=== PATIENT | male | born 1955 | race Caucasian/White ===

== ENCOUNTER 2022-07-15 11:04 | Inpatient (IN) ==
[2022-07-15 11:57] LABS: Hemoglobin 18.9 g/dL (13.2-16.3); Mean Corpuscular Hemoglobin 32.9 pg (27-33); Mean Platelet Volume 8.1 fL (7.5-11.2); Platelet Count 258 10^3/uL (150-450); Red Blood Count 5.75 10^6/uL (4.06-5.63); Red Cell Distribution Width 14.6 % (12-17); White Blood Count 10.5 10^3/uL (3.6-10.2)
[2022-07-15 12:07] LABS: INR 1.14 (0.88-1.18)
[2022-07-15] MEDS ORDERED: Lactated Ringers 1000 ml BAG 1,000 ML IV ONE ×2 (12:50)
[2022-07-15] MEDS ORDERED: Ondansetron 4 mg VIAL 2 MG/ML 2 ml VIAL IV ONE ×2 (12:51→20:49)
[2022-07-15 12:53] LABS: ABS Lymphocytes 0.6 10^3/uL (1.0-4.8); ABS Monocytes 2.1 10^3/uL (0.0-1.1); ABS Neutrophils 7.7 10^3/uL (1.5-7.6); ABS Nucleated RBC 0.03 10^3/ul; Eosinophil % 0.1 %; Lymphocyte % 5.6 %; Nucleated Red Blood Cells % 0.3 /100 WBC (0.0-0.4); RBC Morphology Normal (Normal)
[2022-07-15 12:56] LABS: ALT 81 U/L (7-52); Albumin 4.4 g/dL (3.2-5.2); Albumin/Globulin Ratio 1.3 (1-3); Alkaline Phosphatase 94 U/L (35-149); Blood Urea Nitrogen 58 mg/dL (6-24); C Reactive Protein 222.16 mg/L (<8.01); CO2 Carbon Dioxide 28 mmol/L (22-32); Calcium 9.7 mg/dL (8.6-10.3); Chloride 85 mmol/L (101-111); Creatinine, Serum 1.69 mg/dL (0.67-1.17); Globulin 3.4 g/dL (2-4); Glucose 185 mg/dL (70-100); Lipase 22 U/L (11.0-82.0); Magnesium 2.1 mg/dL (1.9-2.7); Sodium 128 mmol/L (135-145); Total Protein 7.8 g/dL (6.4-8.9); eGFR CKD-EPI 44.2 (>60)
[2022-07-15 13:16] LABS: Anion Gap 15 mmol/L (2-16)
[2022-07-15] MEDS ORDERED: Iodixanol (CONTRAST) 320 MG/ML 100 ML SDV IV ONE (13:18)
[2022-07-15 15:24] LABS: Potassium Redraw 3.2 mmol/L (3.5-5.0)
[2022-07-15] MEDS ORDERED: Dextrose 50% Syringe 50 ml 25 GM/50 ML SYRINGE IV PUSH PRN (17:58)
[2022-07-15 18:58] LABS: Calcium 9.1 mg/dL (8.6-10.3); Creatinine, Serum 1.57 mg/dL (0.67-1.17); Potassium 3.2 mmol/L (3.5-5.0); eGFR CKD-EPI 48.3 (>60)
[2022-07-15] MEDS ORDERED: Lactated Ringers 1000 ml BAG 1,000 ML IV SCH (19:00)
[2022-07-15] MEDS ORDERED: Diatrizoate Meg/Sod(CONTRAST) 30 ML ORAL.SOLN PO ONE (20:00)
[2022-07-15] MEDS: KCL 20 MEQ/100 ML IVPREMIX 20 MEQ/100 ML BAG IV SCH (20:36)
[2022-07-15] MEDS: Enoxaparin 40 MG/0.4 ML SYR SUBCUT SCH (20:37)
[2022-07-15] MEDS ORDERED: Acetaminophen IV 1 GM/100ML 1,000 MG/100 ML BAG IV ONE (20:55)
[2022-07-15] MEDS: FOSPHENYTOIN IVPB SCH (22:30)
[2022-07-15] MEDS: NS 0.9% IVPB SCH (22:30)
[2022-07-16] MEDS: KCL 20 MEQ/100 ML IVPREMIX 20 MEQ/100 ML BAG IV SCH ×3 (02:49→12:19)
[2022-07-16 06:48] LABS: Hemoglobin 16.7 g/dL (13.2-16.3); Mean Corpuscular Hemoglobin 32.6 pg (27-33); Mean Corpuscular Hgb Conc 34.8 g/dL (31-36); Mean Corpuscular Volume 93.7 fL (80-97); Mean Platelet Volume 8.6 fL (7.5-11.2); Platelet Count 213 10^3/uL (150-450); Red Blood Count 5.12 10^6/uL (4.06-5.63); Red Cell Distribution Width 14.6 % (12-17); White Blood Count 7.3 10^3/uL (3.6-10.2)
[2022-07-16 07:06] LABS: Albumin 3.5 g/dL (3.2-5.2); Albumin/Globulin Ratio 1.3 (1-3); Calcium 8.9 mg/dL (8.6-10.3); Creatinine, Serum 1.16 mg/dL (0.67-1.17); Globulin 2.7 g/dL (2-4); Phosphorus 2.9 mg/dL (2.5-5.0); Potassium 3.4 mmol/L (3.5-5.0); Total Bilirubin 1.2 mg/dL (0.2-1.0); Total Protein 6.2 g/dL (6.4-8.9); eGFR CKD-EPI 69.5 (>60)
[2022-07-16 07:23] LABS: Polychromasia 1+
[2022-07-16 07:25] LABS: ABS Monocytes 1.7 10^3/uL (0.0-1.1); ABS Neutrophils 4.5 10^3/uL (1.5-7.6); ABS Nucleated RBC 0.01 10^3/ul; Eosinophil % 0.6 %; Lymphocyte % 14.4 %; Nucleated Red Blood Cells % 0.1 /100 WBC (0.0-0.4)
[2022-07-16] MEDS: levETIRAcetam IV 250 MG in NS 0.9% 100 ml BAG 100 ML IVPB SCH ×2 (11:02→22:45)
[2022-07-16] MEDS: NS 0.9% IVPB SCH ×2 (11:44→22:16)
[2022-07-16] MEDS: FOSPHENYTOIN IVPB SCH ×2 (11:44→22:16)
[2022-07-16] MEDS: NS 0.9% 1000 ml BAG 1,000 ML IV SCH ×2 (14:24→22:25)
[2022-07-16] MEDS: Enoxaparin 40 MG/0.4 ML SYR SUBCUT SCH (16:57)
[2022-07-17 06:00] LABS: Hematocrit 46.2 % (38-53); Mean Corpuscular Hemoglobin 32.8 pg (27-33); Mean Corpuscular Hgb Conc 34.5 g/dL (31-36); Mean Corpuscular Volume 95.1 fL (80-97); Mean Platelet Volume 7.9 fL (7.5-11.2); Platelet Count 191 10^3/uL (150-450); Red Blood Count 4.86 10^6/uL (4.06-5.63); Red Cell Distribution Width 14.2 % (12-17); White Blood Count 6.9 10^3/uL (3.6-10.2)
[2022-07-17] MEDS: NS 0.9% 1000 ml BAG 1,000 ML IV SCH (06:31)
[2022-07-17 06:38] LABS: Albumin 3.3 g/dL (3.2-5.2); Albumin/Globulin Ratio 1.2 (1-3); Creatinine, Serum 0.77 mg/dL (0.67-1.17); Globulin 2.8 g/dL (2-4); Potassium 2.9 mmol/L (3.5-5.0); Total Bilirubin 0.9 mg/dL (0.2-1.0); Total Protein 6.1 g/dL (6.4-8.9); eGFR CKD-EPI 98.7 (>60)
[2022-07-17 07:54] LABS: ABS Eosinophils 0.1 10^3/uL (0.0-0.5); ABS Lymphocytes 0.9 10^3/uL (1.0-4.8); ABS Monocytes 1.5 10^3/uL (0.0-1.1); ABS Neutrophils 4.4 10^3/uL (1.5-7.6); ABS Nucleated RBC 0.01 10^3/ul; Eosinophil % 0.9 %; Lymphocyte % 13.5 %; Nucleated Red Blood Cells % 0.1 /100 WBC (0.0-0.4); RBC Morphology Normal (Normal)
[2022-07-17] MEDS: KCL 20 MEQ/100 ML IVPREMIX 20 MEQ/100 ML BAG IV SCH ×3 (08:05→13:05)
[2022-07-17] MEDS: NS 0.9% IVPB SCH ×2 (10:09→22:56)
[2022-07-17] MEDS: FOSPHENYTOIN IVPB SCH ×2 (10:09→22:56)
[2022-07-17] MEDS: levETIRAcetam IV 250 MG in NS 0.9% 100 ml BAG 100 ML IVPB SCH ×2 (10:32→23:45)
[2022-07-17] MEDS ORDERED: oxyCODONE/Acetamin 5/325 mg TAB PO PRN (14:28)
[2022-07-17] MEDS ORDERED: Ondansetron 4 mg VIAL 2 MG/ML 2 ml VIAL IV PRN (14:28)
[2022-07-17] MEDS ORDERED: Naloxone 0.4 mg VIAL 0.4 mg/ml 1 ml VIAL IV PRN (14:28)
[2022-07-17] MEDS ORDERED: fentaNYL 100 mcg/2 ml 50 MCG/ML VIAL IV PRN (14:28)
[2022-07-17] MEDS: D5W 1/2 NS 40 Meq KCL 1000 ml 1,000 ML IV SCH ×2 (15:06→22:50)
[2022-07-17] MEDS ORDERED: Lidocaine 2% PF 5 ML VIAL ONE (15:57)
[2022-07-17] MEDS ORDERED: Succinylcholine 200 mg VIAL 20 mg/ml 10 ml VIAL (200 mg) ONE (15:57)
[2022-07-17] MEDS ORDERED: Propofol 10 MG/ML 20 ML BTL ONE (15:57)
[2022-07-17] MEDS ORDERED: Rocuronium 50 mg VIAL 10 mg/ml 5 ml VIAL (50 mg) ONE ×2 (15:57→19:03)
[2022-07-17] MEDS ORDERED: fentaNYL 100 mcg/2 ml 50 MCG/ML VIAL ONE ×2 (15:58→18:00)
[2022-07-17] MEDS ORDERED: Midazolam 2 mg/2 ml VIAL 1 mg/ml 2 ml VIAL (2 mg) ONE (15:58)
[2022-07-17] MEDS ORDERED: Bupivacaine 0.25% SDV 30 ML ONE (16:02)
[2022-07-17] MEDS ORDERED: ceFAZolin *3* GM in NS PREMIX 3 GM/100 ML BAG IV ONE (16:56)
[2022-07-17] MEDS ORDERED: Acetaminophen IV 1 GM/100ML 1,000 MG/100 ML BAG IV ONE (16:56)
[2022-07-17] MEDS ORDERED: Dexamethasone IV 4 MG/ML VIAL 1 ml VIAL ONE ×2 (18:10)
[2022-07-17] MEDS ORDERED: HYDROmorphone 0.5 MG/0.5 ML SYRINGE ONE (18:19)
[2022-07-17] MEDS ORDERED: ZOSYN 3.375 GM x ONE DOSE over 30 miuntes IV (19:00)
[2022-07-17] MEDS ORDERED: Sugammadex 500 MG/5 ML 5 ml VIAL IV PUSH ONE (19:24)
[2022-07-17] MEDS ORDERED: HYDROmorphone 1 MG/1 ML SYRINGE IV SLOW PU PRN (21:41)
[2022-07-17] MEDS ORDERED: Acetaminophen IV 1 GM/100ML 1,000 MG/100 ML BAG IV SCH (22:00)
[2022-07-17] MEDS ORDERED: Metoprolol Tartrate 5 mg VIAL 5 ml VIAL (1 mg/ml) IV SCH (23:45)
[2022-07-18] MEDS: Metoprolol Tartrate 5 mg VIAL 5 ml VIAL (1 mg/ml) IV SCH ×4 (00:40→18:18)
[2022-07-18] MEDS: Acetaminophen IV 1 GM/100ML 1,000 MG/100 ML BAG IV SCH ×3 (01:22→17:07)
[2022-07-18] MEDS: Enoxaparin 40 MG/0.4 ML SYR SUBCUT SCH ×2 (02:59→20:28)
[2022-07-18] MEDS: Piperacillin/Tazobac ADVAN 3.375 GM in NS 0.9% 100 ml BAG 100 ML IV SCH ×3 (05:11→20:20)
[2022-07-18 05:56] LABS: Hematocrit 50.9 % (38-53); Hemoglobin 17.2 g/dL (13.2-16.3); Mean Corpuscular Hemoglobin 32.5 pg (27-33); Mean Corpuscular Hgb Conc 33.8 g/dL (31-36); Mean Platelet Volume 8.1 fL (7.5-11.2); Platelet Count 200 10^3/uL (150-450); Red Cell Distribution Width 14.6 % (12-17); White Blood Count 14.9 10^3/uL (3.6-10.2)
[2022-07-18 06:06] LABS: Calcium 7.3 mg/dL (8.6-10.3); Creatinine, Serum 1.16 mg/dL (0.67-1.17); Potassium 3.8 mmol/L (3.5-5.0); eGFR CKD-EPI 69.5 (>60)
[2022-07-18 06:25] LABS: Platelet Morphology Large
[2022-07-18 06:26] LABS: ABS Lymphocytes 0.2 10^3/uL (1.0-4.8); ABS Monocytes 0.6 10^3/uL (0.0-1.1); ABS Neutrophils 14.1 10^3/uL (1.5-7.6); ABS Nucleated RBC 0.02 10^3/ul; Eosinophil % 0.1 %; Lymphocyte % 1.4 %; Nucleated Red Blood Cells % 0.1 /100 WBC (0.0-0.4)
[2022-07-18] MEDS: NS 0.9% IVPB SCH ×2 (09:46→20:28)
[2022-07-18] MEDS: FOSPHENYTOIN IVPB SCH ×2 (09:46→20:28)
[2022-07-18] MEDS: D5W 1/2 NS 40 Meq KCL 1000 ml 1,000 ML IV SCH ×2 (09:53→20:18)
[2022-07-18] MEDS: Nystatin TOP POWDER 15 GM BTL TOPICAL SCH (09:55)
[2022-07-18] MEDS: levETIRAcetam IV 250 MG in NS 0.9% 100 ml BAG 100 ML IVPB SCH (12:28)
[2022-07-19] MEDS: Metoprolol Tartrate 5 mg VIAL 5 ml VIAL (1 mg/ml) IV SCH ×5 (00:01→23:17)
[2022-07-19] MEDS: Acetaminophen IV 1 GM/100ML 1,000 MG/100 ML BAG IV SCH ×3 (00:44→16:44)
[2022-07-19 06:06] LABS: Hematocrit 49.7 % (38-53); Hemoglobin 16.8 g/dL (13.2-16.3); Mean Corpuscular Hemoglobin 32.5 pg (27-33); Mean Corpuscular Hgb Conc 33.8 g/dL (31-36); Mean Corpuscular Volume 96.1 fL (80-97); Mean Platelet Volume 8.3 fL (7.5-11.2); Platelet Count 202 10^3/uL (150-450); Red Blood Count 5.17 10^6/uL (4.06-5.63); Red Cell Distribution Width 14.9 % (12-17); White Blood Count 21.5 10^3/uL (3.6-10.2)
[2022-07-19] MEDS: Piperacillin/Tazobac ADVAN 3.375 GM in NS 0.9% 100 ml BAG 100 ML IV SCH ×3 (06:07→21:04)
[2022-07-19 06:16] LABS: Calcium 7.3 mg/dL (8.6-10.3); Creatinine, Serum 1.04 mg/dL (0.67-1.17); Potassium 4.2 mmol/L (3.5-5.0); eGFR CKD-EPI 79.2 (>60)
[2022-07-19 07:50] LABS: RBC Morphology Normal (Normal)
[2022-07-19 07:51] LABS: ABS Lymphocytes 0.5 10^3/uL (1.0-4.8); ABS Monocytes 0.8 10^3/uL (0.0-1.1); ABS Neutrophils 20.2 10^3/uL (1.5-7.6); ABS Nucleated RBC 0.01 10^3/ul; Eosinophil % 0.1 %; Lymphocyte % 2.3 %
[2022-07-19] MEDS ORDERED: Lactated Ringers 1000 ml BAG 1,000 ML IV ONE (07:59)
[2022-07-19] MEDS: Nystatin TOP POWDER 15 GM BTL TOPICAL SCH (08:12)
[2022-07-19] MEDS: FOSPHENYTOIN IVPB SCH ×2 (09:00→21:18)
[2022-07-19] MEDS: NS 0.9% IVPB SCH ×2 (09:00→21:18)
[2022-07-19] MEDS: levETIRAcetam IV 250 MG in NS 0.9% 100 ml BAG 100 ML IVPB SCH ×3 (11:45→23:20)
[2022-07-19] MEDS ORDERED: Lactated Ringers 1000 ml BAG 1,000 ML IV SCH (12:00)
[2022-07-19] MEDS: Ondansetron 4 mg VIAL 2 MG/ML 2 ml VIAL IV PRN (19:05)
[2022-07-19] MEDS: Enoxaparin 40 MG/0.4 ML SYR SUBCUT SCH (21:18)
[2022-07-19] MEDS ORDERED: Prochlorperazine 5 mg/ml 2 ml VIAL (10 mg) IV ONE (23:09)
[2022-07-20] MEDS: Acetaminophen IV 1 GM/100ML 1,000 MG/100 ML BAG IV SCH ×3 (00:58→17:45)
[2022-07-20] MEDS: Ondansetron 4 mg VIAL 2 MG/ML 2 ml VIAL IV PRN (00:59)
[2022-07-20] MEDS: Piperacillin/Tazobac ADVAN 3.375 GM in NS 0.9% 100 ml BAG 100 ML IV SCH ×3 (05:12→21:06)
[2022-07-20] MEDS: Metoprolol Tartrate 5 mg VIAL 5 ml VIAL (1 mg/ml) IV SCH ×3 (05:16→17:53)
[2022-07-20] MEDS ORDERED: Prochlorperazine 5 mg/ml 2 ml VIAL (10 mg) IV ONE (05:28)
[2022-07-20 06:13] LABS: Hematocrit 46.8 % (38-53); Hemoglobin 15.7 g/dL (13.2-16.3); Mean Corpuscular Hemoglobin 31.4 pg (27-33); Mean Corpuscular Hgb Conc 33.5 g/dL (31-36); Mean Platelet Volume 8.4 fL (7.5-11.2); Platelet Count 222 10^3/uL (150-450); Red Blood Count 4.98 10^6/uL (4.06-5.63); White Blood Count 22.6 10^3/uL (3.6-10.2)
[2022-07-20 06:33] LABS: Calcium 7.4 mg/dL (8.6-10.3); Creatinine, Serum 0.74 mg/dL (0.67-1.17); Potassium 3.9 mmol/L (3.5-5.0); eGFR CKD-EPI 99.9 (>60)
[2022-07-20 09:40] LABS: ABS Eosinophils 0.2 10^3/uL (0.0-0.5); ABS Lymphocytes 0.7 10^3/uL (1.0-4.8); ABS Monocytes 0.7 10^3/uL (0.0-1.1); ABS Neutrophils 21.1 10^3/uL (1.5-7.6); Eosinophil % 0.7 %
[2022-07-20] MEDS: NS 0.9% IVPB SCH ×2 (09:57→20:29)
[2022-07-20] MEDS: FOSPHENYTOIN IVPB SCH ×2 (09:57→20:29)
[2022-07-20] MEDS: Nystatin TOP POWDER 15 GM BTL TOPICAL SCH (10:40)
[2022-07-20] MEDS: levETIRAcetam IV 250 MG in NS 0.9% 100 ml BAG 100 ML IVPB SCH (12:48)
[2022-07-20 19:04] LABS: Hematocrit 45.8 % (38-53); Hemoglobin 15.4 g/dL (13.2-16.3); Mean Corpuscular Hemoglobin 31.4 pg (27-33); Mean Corpuscular Hgb Conc 33.7 g/dL (31-36); Mean Corpuscular Volume 93.2 fL (80-97); Mean Platelet Volume 8.3 fL (7.5-11.2); Platelet Count 221 10^3/uL (150-450); Red Blood Count 4.92 10^6/uL (4.06-5.63); Red Cell Distribution Width 15.1 % (12-17); White Blood Count 22.4 10^3/uL (3.6-10.2)
[2022-07-20 19:20] LABS: Albumin 2.5 g/dL (3.2-5.2); Albumin/Globulin Ratio 0.9 (1-3); C Reactive Protein 362.32 mg/L (<8.01); Calcium 6.9 mg/dL (8.6-10.3); Creatinine, Serum 0.79 mg/dL (0.67-1.17); Globulin 2.9 g/dL (2-4); Potassium 4.2 mmol/L (3.5-5.0); Total Bilirubin 1.1 mg/dL (0.2-1.0); Total Protein 5.4 g/dL (6.4-8.9)
[2022-07-20 20:15] LABS: ABS Basophils 0.1 10^3/uL (0.0-0.1); ABS Eosinophils 0.1 10^3/uL (0.0-0.5); ABS Lymphocytes 0.7 10^3/uL (1.0-4.8); ABS Monocytes 0.6 10^3/uL (0.0-1.1); Eosinophil % 0.2 %
[2022-07-20] MEDS ORDERED: Iodixanol (CONTRAST) 320 MG/ML 100 ML SDV IV ONE (20:17)
[2022-07-20] MEDS: Enoxaparin 40 MG/0.4 ML SYR SUBCUT SCH (20:30)
[2022-07-21] MEDS: Metoprolol Tartrate 5 mg VIAL 5 ml VIAL (1 mg/ml) IV SCH ×4 (00:21→19:14)
[2022-07-21] MEDS: levETIRAcetam IV 250 MG in NS 0.9% 100 ml BAG 100 ML IVPB SCH ×2 (01:31→14:24)
[2022-07-21] MEDS: Acetaminophen IV 1 GM/100ML 1,000 MG/100 ML BAG IV SCH ×3 (01:58→17:52)
[2022-07-21] MEDS: Albuterol/Ipratropium NEB.SOL (2.5/0.5 MG) 3 ML NEB.SOLN INH PRN ×2 (02:18→18:13)
[2022-07-21] MEDS: Ondansetron 4 mg VIAL 2 MG/ML 2 ml VIAL IV PRN (02:21)
[2022-07-21] MEDS: Piperacillin/Tazobac ADVAN 3.375 GM in NS 0.9% 100 ml BAG 100 ML IV SCH ×3 (04:49→20:59)
[2022-07-21 06:01] LABS: Hemoglobin 15.3 g/dL (13.2-16.3); Mean Corpuscular Hemoglobin 31.9 pg (27-33); Mean Corpuscular Hgb Conc 33.9 g/dL (31-36); Mean Corpuscular Volume 93.9 fL (80-97); Mean Platelet Volume 8.3 fL (7.5-11.2); Platelet Count 206 10^3/uL (150-450); Red Blood Count 4.79 10^6/uL (4.06-5.63); White Blood Count 20.4 10^3/uL (3.6-10.2)
[2022-07-21 06:36] LABS: Creatinine, Serum 0.84 mg/dL (0.67-1.17); eGFR CKD-EPI 96.2 (>60)
[2022-07-21 08:53] LABS: ABS Basophils 0.1 10^3/uL (0.0-0.1); ABS Eosinophils 0.1 10^3/uL (0.0-0.5); ABS Lymphocytes 0.7 10^3/uL (1.0-4.8); ABS Monocytes 0.6 10^3/uL (0.0-1.1); ABS Neutrophils 18.8 10^3/uL (1.5-7.6); ABS Nucleated RBC 0.04 10^3/ul; Eosinophil % 0.7 %; Lymphocyte % 3.6 %; Nucleated Red Blood Cells % 0.2 /100 WBC (0.0-0.4)
[2022-07-21 08:55] LABS: RBC Morphology Normal (Normal)
[2022-07-21] MEDS ORDERED: Furosemide 40 mg/4 ml IV VIAL IV SLOW PU ONE (08:57)
[2022-07-21] MEDS: FOSPHENYTOIN IVPB SCH ×2 (10:36→20:28)
[2022-07-21] MEDS: NS 0.9% IVPB SCH ×2 (10:36→20:28)
[2022-07-21] MEDS: Nystatin TOP POWDER 15 GM BTL TOPICAL SCH (12:37)
[2022-07-21] MEDS: levETIRAcetam LIQ 500 MG/5 ML UDC PO SCH ×2 (15:06→20:22)
[2022-07-21] MEDS ORDERED: Sulfur Hexaflouride MICROSPHR 25 MG VIAL ONE (15:49)
[2022-07-21] MEDS: Mometasone/Formoter 200/5 MDI INH SCH ×2 (18:08→19:04)
[2022-07-21] MEDS: Enoxaparin 40 MG/0.4 ML SYR SUBCUT SCH (20:21)
[2022-07-22] MEDS: Metoprolol Tartrate 5 mg VIAL 5 ml VIAL (1 mg/ml) IV SCH ×4 (00:23→19:07)
[2022-07-22] MEDS: Acetaminophen IV 1 GM/100ML 1,000 MG/100 ML BAG IV SCH ×3 (01:43→19:07)
[2022-07-22] MEDS ORDERED: Morphine 2 MG/ML SYRINGE IV ONE (04:41)
[2022-07-22] MEDS ORDERED: Morphine 2 MG/ML SYRINGE ONE (04:45)
[2022-07-22] MEDS: Piperacillin/Tazobac ADVAN 3.375 GM in NS 0.9% 100 ml BAG 100 ML IV SCH ×3 (04:51→21:51)
[2022-07-22] MEDS: FOSPHENYTOIN IVPB SCH ×2 (09:00→20:50)
[2022-07-22] MEDS: NS 0.9% IVPB SCH ×2 (09:00→20:50)
[2022-07-22] MEDS: levETIRAcetam LIQ 500 MG/5 ML UDC PO SCH ×2 (10:03→22:05)
[2022-07-22] MEDS: Nystatin TOP POWDER 15 GM BTL TOPICAL SCH (10:03)
[2022-07-22] MEDS: Mometasone/Formoter 200/5 MDI INH SCH ×2 (10:33→19:40)
[2022-07-22 11:59] LABS: Hematocrit 42.7 % (38-53); Hemoglobin 14.5 g/dL (13.2-16.3); Mean Corpuscular Hemoglobin 31.7 pg (27-33); Mean Corpuscular Volume 93.1 fL (80-97); Mean Platelet Volume 7.8 fL (7.5-11.2); Platelet Count 218 10^3/uL (150-450); Red Blood Count 4.59 10^6/uL (4.06-5.63); Red Cell Distribution Width 15.2 % (12-17); White Blood Count 25.2 10^3/uL (3.6-10.2)
[2022-07-22 12:22] LABS: Calcium 7.1 mg/dL (8.6-10.3); Creatinine, Serum 0.65 mg/dL (0.67-1.17); Potassium 3.9 mmol/L (3.5-5.0); eGFR CKD-EPI 103.9 (>60)
[2022-07-22] MEDS ORDERED: Anidulafungin 200 MG in NS 0.9% 250 ml 200 ML IVPB ONE (12:37)
[2022-07-22 12:52] LABS: ABS Basophils 0.1 10^3/uL (0.0-0.1); ABS Eosinophils 0.3 10^3/uL (0.0-0.5); ABS Lymphocytes 0.8 10^3/uL (1.0-4.8); ABS Nucleated RBC 0.02 10^3/ul; Lymphocyte % 3.2 %; Nucleated Red Blood Cells % 0.1 /100 WBC (0.0-0.4); RBC Morphology Normal (Normal)
[2022-07-22] MEDS: Enoxaparin 40 MG/0.4 ML SYR SUBCUT SCH (22:05)
[2022-07-23] MEDS: Metoprolol Tartrate 5 mg VIAL 5 ml VIAL (1 mg/ml) IV SCH ×2 (01:00→05:55)
[2022-07-23] MEDS: Acetaminophen IV 1 GM/100ML 1,000 MG/100 ML BAG IV SCH ×3 (02:05→18:25)
[2022-07-23] MEDS: Piperacillin/Tazobac ADVAN 3.375 GM in NS 0.9% 100 ml BAG 100 ML IV SCH ×3 (05:50→22:01)
[2022-07-23 06:48] LABS: ABS Basophils 0.1 10^3/uL (0.0-0.1); ABS Eosinophils 0.2 10^3/uL (0.0-0.5); ABS Lymphocytes 0.9 10^3/uL (1.0-4.8); ABS Nucleated RBC 0.01 10^3/ul; Eosinophil % 0.7 %; Hematocrit 43.2 % (38-53); Hemoglobin 14.6 g/dL (13.2-16.3); Lymphocyte % 3.8 %; Mean Corpuscular Hemoglobin 31.9 pg (27-33); Mean Corpuscular Hgb Conc 33.7 g/dL (31-36); Mean Corpuscular Volume 94.7 fL (80-97); Platelet Count 247 10^3/uL (150-450); Red Blood Count 4.56 10^6/uL (4.06-5.63); White Blood Count 24.1 10^3/uL (3.6-10.2)
[2022-07-23 07:01] LABS: Calcium 7.4 mg/dL (8.6-10.3); Potassium 3.8 mmol/L (3.5-5.0)
[2022-07-23 07:07] LABS: Creatinine, Serum 0.63 mg/dL (0.67-1.17); eGFR CKD-EPI 104.9 (>60)
[2022-07-23] MEDS: Mometasone/Formoter 200/5 MDI INH SCH ×2 (07:26→19:06)
[2022-07-23] MEDS: FOSPHENYTOIN IVPB SCH (08:59)
[2022-07-23] MEDS: NS 0.9% IVPB SCH (08:59)
[2022-07-23] MEDS: levETIRAcetam LIQ 500 MG/5 ML UDC PO SCH ×2 (09:13→21:28)
[2022-07-23] MEDS: Nystatin TOP POWDER 15 GM BTL TOPICAL SCH (09:14)
[2022-07-23] MEDS ORDERED: Iodixanol (CONTRAST) 320 MG/ML 100 ML SDV IV ONE (10:58)
[2022-07-23] MEDS ORDERED: Anidulafungin 100 MG in NS 0.9% 100 ml BAG 100 ML IVPB SCH (14:00)
[2022-07-23] MEDS: Anidulafungin 100 MG in NS 0.9% 100 ml BAG 100 ML IVPB SCH (18:38)
[2022-07-23] MEDS: Enoxaparin 40 MG/0.4 ML SYR SUBCUT SCH (21:27)
[2022-07-23] MEDS: Phenytoin 100 mg ER CAP PO SCH (21:28)
[2022-07-24] MEDS: Acetaminophen IV 1 GM/100ML 1,000 MG/100 ML BAG IV SCH ×3 (01:29→22:04)
[2022-07-24] MEDS: Piperacillin/Tazobac ADVAN 3.375 GM in NS 0.9% 100 ml BAG 100 ML IV SCH ×3 (04:46→23:00)
[2022-07-24] MEDS: Mometasone/Formoter 200/5 MDI INH SCH ×2 (07:12→19:33)
[2022-07-24] MEDS: levETIRAcetam LIQ 500 MG/5 ML UDC PO SCH ×2 (09:01→22:12)
[2022-07-24] MEDS: Phenytoin 100 mg ER CAP PO SCH ×2 (09:02→22:11)
[2022-07-24] MEDS: Nystatin TOP POWDER 15 GM BTL TOPICAL SCH (09:02)
[2022-07-24 09:40] LABS: Hemoglobin 13.7 g/dL (13.2-16.3); Mean Corpuscular Hgb Conc 34.2 g/dL (31-36); Mean Corpuscular Volume 93.7 fL (80-97); Mean Platelet Volume 7.9 fL (7.5-11.2); Platelet Count 264 10^3/uL (150-450); Red Blood Count 4.27 10^6/uL (4.06-5.63); Red Cell Distribution Width 15.1 % (12-17); White Blood Count 24.7 10^3/uL (3.6-10.2)
[2022-07-24 10:03] LABS: Calcium 7.3 mg/dL (8.6-10.3); Creatinine, Serum 0.52 mg/dL (0.67-1.17); Magnesium 1.6 mg/dL (1.9-2.7); Potassium 3.6 mmol/L (3.5-5.0); eGFR CKD-EPI 111.2 (>60)
[2022-07-24 10:23] LABS: ABS Basophils 0.1 10^3/uL (0.0-0.1); ABS Eosinophils 0.1 10^3/uL (0.0-0.5); ABS Lymphocytes 0.8 10^3/uL (1.0-4.8); ABS Monocytes 1.3 10^3/uL (0.0-1.1); ABS Neutrophils 22.4 10^3/uL (1.5-7.6); ABS Nucleated RBC 0.04 10^3/ul; Eosinophil % 0.5 %; Lymphocyte % 3.3 %; Nucleated Red Blood Cells % 0.1 /100 WBC (0.0-0.4); RBC Morphology Normal (Normal)
[2022-07-24] MEDS ORDERED: Magnesium Sulfate 2 gm BAG 2 GM/50 ML BAG IVPB ONE (11:32)
[2022-07-24] MEDS ORDERED: fentaNYL 100 mcg/2 ml 50 MCG/ML VIAL ONE (13:01)
[2022-07-24 16:08] LABS: Body Fluid WBC 130268 /mcL
[2022-07-24 16:10] LABS: Body Fluid Appearance Cloudy
[2022-07-24] MEDS: Anidulafungin 100 MG in NS 0.9% 100 ml BAG 100 ML IVPB SCH (21:44)
[2022-07-24] MEDS: Enoxaparin 40 MG/0.4 ML SYR SUBCUT SCH (22:12)
[2022-07-25] MEDS: Acetaminophen IV 1 GM/100ML 1,000 MG/100 ML BAG IV SCH ×3 (02:52→17:54)
[2022-07-25] MEDS: Piperacillin/Tazobac ADVAN 3.375 GM in NS 0.9% 100 ml BAG 100 ML IV SCH ×3 (05:48→22:34)
[2022-07-25 05:57] LABS: Hematocrit 37.4 % (38-53); Hemoglobin 12.7 g/dL (13.2-16.3); Mean Corpuscular Hemoglobin 31.9 pg (27-33); Mean Corpuscular Hgb Conc 33.9 g/dL (31-36); Mean Corpuscular Volume 94.1 fL (80-97); Mean Platelet Volume 7.9 fL (7.5-11.2); Platelet Count 275 10^3/uL (150-450); Red Blood Count 3.97 10^6/uL (4.06-5.63); Red Cell Distribution Width 15.1 % (12-17); White Blood Count 21.3 10^3/uL (3.6-10.2)
[2022-07-25 06:12] LABS: Calcium 7.2 mg/dL (8.6-10.3); Creatinine, Serum 0.56 mg/dL (0.67-1.17); Magnesium 1.9 mg/dL (1.9-2.7); Potassium 3.6 mmol/L (3.5-5.0); eGFR CKD-EPI 108.7 (>60)
[2022-07-25] MEDS: Mometasone/Formoter 200/5 MDI INH SCH ×2 (06:52→19:57)
[2022-07-25 06:55] LABS: ABS Basophils 0.1 10^3/uL (0.0-0.1); ABS Eosinophils 0.2 10^3/uL (0.0-0.5); ABS Monocytes 1.2 10^3/uL (0.0-1.1); ABS Neutrophils 18.8 10^3/uL (1.5-7.6); ABS Nucleated RBC 0.02 10^3/ul; Eosinophil % 0.9 %; Lymphocyte % 4.8 %; Nucleated Red Blood Cells % 0.1 /100 WBC (0.0-0.4); RBC Morphology Normal (Normal)
[2022-07-25] MEDS: levETIRAcetam LIQ 500 MG/5 ML UDC PO SCH ×2 (09:04→22:37)
[2022-07-25] MEDS: Nystatin TOP POWDER 15 GM BTL TOPICAL SCH (09:05)
[2022-07-25] MEDS: Phenytoin 100 mg ER CAP PO SCH ×2 (09:05→21:51)
[2022-07-25] MEDS: Anidulafungin 100 MG in NS 0.9% 100 ml BAG 100 ML IVPB SCH (18:23)
[2022-07-25] MEDS: Enoxaparin 40 MG/0.4 ML SYR SUBCUT SCH (22:01)
[2022-07-26] MEDS: Acetaminophen IV 1 GM/100ML 1,000 MG/100 ML BAG IV SCH ×2 (01:11→09:31)
[2022-07-26] MEDS: Piperacillin/Tazobac ADVAN 3.375 GM in NS 0.9% 100 ml BAG 100 ML IV SCH ×3 (04:43→21:29)
[2022-07-26 07:35] LABS: Hematocrit 37.4 % (38-53); Hemoglobin 12.8 g/dL (13.2-16.3); Mean Corpuscular Hemoglobin 32.2 pg (27-33); Mean Corpuscular Hgb Conc 34.3 g/dL (31-36); Mean Corpuscular Volume 93.7 fL (80-97); Mean Platelet Volume 7.9 fL (7.5-11.2); Platelet Count 340 10^3/uL (150-450); Red Blood Count 3.99 10^6/uL (4.06-5.63); Red Cell Distribution Width 14.9 % (12-17); White Blood Count 23.6 10^3/uL (3.6-10.2)
[2022-07-26 08:09] LABS: Calcium 7.3 mg/dL (8.6-10.3); Creatinine, Serum 0.58 mg/dL (0.67-1.17); Potassium 3.5 mmol/L (3.5-5.0); eGFR CKD-EPI 107.6 (>60)
[2022-07-26] MEDS: Mometasone/Formoter 200/5 MDI INH SCH ×2 (08:12→19:22)
[2022-07-26 08:42] LABS: RBC Morphology Normal (Normal)
[2022-07-26 08:43] LABS: ABS Basophils 0.1 10^3/uL (0.0-0.1); ABS Eosinophils 0.1 10^3/uL (0.0-0.5); ABS Lymphocytes 0.9 10^3/uL (1.0-4.8); ABS Monocytes 1.3 10^3/uL (0.0-1.1); ABS Neutrophils 21.2 10^3/uL (1.5-7.6); ABS Nucleated RBC 0.01 10^3/ul; Eosinophil % 0.5 %; Lymphocyte % 3.8 %
[2022-07-26] MEDS: levETIRAcetam LIQ 500 MG/5 ML UDC PO SCH ×2 (09:31→20:32)
[2022-07-26] MEDS: Phenytoin 100 mg ER CAP PO SCH ×2 (09:31→20:33)
[2022-07-26] MEDS: Nystatin TOP POWDER 15 GM BTL TOPICAL SCH (09:33)
[2022-07-26 12:33] LABS: C Reactive Protein 220.29 mg/L (<8.01)
[2022-07-26] MEDS: Anidulafungin 100 MG in NS 0.9% 100 ml BAG 100 ML IVPB SCH (19:14)
[2022-07-26] MEDS: Enoxaparin 40 MG/0.4 ML SYR SUBCUT SCH (20:29)
[2022-07-27] MEDS: Piperacillin/Tazobac ADVAN 3.375 GM in NS 0.9% 100 ml BAG 100 ML IV SCH ×3 (05:44→21:10)
[2022-07-27 06:01] LABS: Hematocrit 38.3 % (38-53); Hemoglobin 13.2 g/dL (13.2-16.3); Mean Corpuscular Hemoglobin 32.3 pg (27-33); Mean Corpuscular Hgb Conc 34.3 g/dL (31-36); Mean Corpuscular Volume 94.2 fL (80-97); Mean Platelet Volume 7.8 fL (7.5-11.2); Platelet Count 393 10^3/uL (150-450); Red Blood Count 4.07 10^6/uL (4.06-5.63); Red Cell Distribution Width 14.7 % (12-17); White Blood Count 21.9 10^3/uL (3.6-10.2)
[2022-07-27 06:16] LABS: Calcium 7.4 mg/dL (8.6-10.3); Creatinine, Serum 0.49 mg/dL (0.67-1.17); Potassium 3.5 mmol/L (3.5-5.0); eGFR CKD-EPI 113.2 (>60)
[2022-07-27 06:39] LABS: ABS Basophils 0.3 10^3/uL (0.0-0.1); ABS Eosinophils 0.1 10^3/uL (0.0-0.5); ABS Lymphocytes 0.8 10^3/uL (1.0-4.8); ABS Monocytes 1.3 10^3/uL (0.0-1.1); ABS Neutrophils 19.4 10^3/uL (1.5-7.6); ABS Nucleated RBC 0.02 10^3/ul; Eosinophil % 0.3 %; Lymphocyte % 3.5 %; Nucleated Red Blood Cells % 0.1 /100 WBC (0.0-0.4); Polychromasia 1+
[2022-07-27] MEDS: Mometasone/Formoter 200/5 MDI INH SCH ×2 (08:24→19:28)
[2022-07-27] MEDS: levETIRAcetam LIQ 500 MG/5 ML UDC PO SCH ×2 (09:09→21:07)
[2022-07-27] MEDS: Phenytoin 100 mg ER CAP PO SCH ×2 (09:10→21:08)
[2022-07-27] MEDS: Nystatin TOP POWDER 15 GM BTL TOPICAL SCH (09:11)
[2022-07-27] MEDS: Anidulafungin 100 MG in NS 0.9% 100 ml BAG 100 ML IVPB SCH (18:32)
[2022-07-27] MEDS: Enoxaparin 40 MG/0.4 ML SYR SUBCUT SCH (21:08)
[2022-07-28] MEDS: Piperacillin/Tazobac ADVAN 3.375 GM in NS 0.9% 100 ml BAG 100 ML IV SCH ×3 (05:11→20:50)
[2022-07-28 06:59] LABS: Hematocrit 40.3 % (38-53); Hemoglobin 13.2 g/dL (13.2-16.3); Mean Corpuscular Hemoglobin 32.3 pg (27-33); Mean Corpuscular Hgb Conc 32.8 g/dL (31-36); Mean Corpuscular Volume 98.5 fL (80-97); Mean Platelet Volume 8.1 fL (7.5-11.2); Platelet Count 368 10^3/uL (150-450); Red Blood Count 4.09 10^6/uL (4.06-5.63); Red Cell Distribution Width 15.6 % (12-17); White Blood Count 19.7 10^3/uL (3.6-10.2)
[2022-07-28 07:22] LABS: ABS Basophils 0.1 10^3/uL (0.0-0.1); ABS Eosinophils 0.1 10^3/uL (0.0-0.5); ABS Lymphocytes 0.9 10^3/uL (1.0-4.8); ABS Monocytes 1.6 10^3/uL (0.0-1.1); Eosinophil % 0.6 %; Lymphocyte % 4.4 %; RBC Morphology Normal (Normal)
[2022-07-28] MEDS: Mometasone/Formoter 200/5 MDI INH SCH ×2 (07:39→19:36)
[2022-07-28] MEDS: Nystatin TOP POWDER 15 GM BTL TOPICAL SCH (09:13)
[2022-07-28] MEDS: Phenytoin 100 mg ER CAP PO SCH ×2 (09:13→20:59)
[2022-07-28] MEDS: levETIRAcetam LIQ 500 MG/5 ML UDC PO SCH ×2 (09:14→20:49)
[2022-07-28] MEDS: Anidulafungin 100 MG in NS 0.9% 100 ml BAG 100 ML IVPB SCH (19:43)
[2022-07-28] MEDS: Enoxaparin 40 MG/0.4 ML SYR SUBCUT SCH (20:50)
[2022-07-29] MEDS: Piperacillin/Tazobac ADVAN 3.375 GM in NS 0.9% 100 ml BAG 100 ML IV SCH ×3 (04:37→22:08)
[2022-07-29 06:10] LABS: Hemoglobin 12.7 g/dL (13.2-16.3); Mean Corpuscular Hemoglobin 32.4 pg (27-33); Mean Corpuscular Hgb Conc 34.4 g/dL (31-36); Mean Corpuscular Volume 94.4 fL (80-97); Mean Platelet Volume 7.3 fL (7.5-11.2); Platelet Count 483 10^3/uL (150-450); Red Blood Count 3.92 10^6/uL (4.06-5.63); Red Cell Distribution Width 15.2 % (12-17); White Blood Count 16.5 10^3/uL (3.6-10.2)
[2022-07-29 06:13] LABS: ABS Eosinophils 0.1 10^3/uL (0.0-0.5); ABS Lymphocytes 0.9 10^3/uL (1.0-4.8); ABS Monocytes 1.6 10^3/uL (0.0-1.1); Eosinophil % 0.5 %; Lymphocyte % 5.2 %
[2022-07-29 06:34] LABS: Calcium 7.5 mg/dL (8.6-10.3); Creatinine, Serum 0.44 mg/dL (0.67-1.17); Potassium 3.7 mmol/L (3.5-5.0); eGFR CKD-EPI 116.9 (>60)
[2022-07-29] MEDS: Mometasone/Formoter 200/5 MDI INH SCH ×2 (07:21→19:19)
[2022-07-29 09:06] LABS: C Reactive Protein 264.13 mg/L (<8.01)
[2022-07-29] MEDS: Phenytoin 100 mg ER CAP PO SCH ×2 (09:26→21:38)
[2022-07-29] MEDS: levETIRAcetam LIQ 500 MG/5 ML UDC PO SCH ×2 (09:26→21:40)
[2022-07-29] MEDS: Nystatin TOP POWDER 15 GM BTL TOPICAL SCH (09:27)
[2022-07-29] MEDS ORDERED: Morphine 2 MG/ML SYRINGE IV PRN (09:29)
[2022-07-29] MEDS ORDERED: Iodixanol (CONTRAST) 320 MG/ML 100 ML SDV IV ONE (11:46)
[2022-07-29] MEDS: Ondansetron 4 mg VIAL 2 MG/ML 2 ml VIAL IV PRN (16:30)
[2022-07-29] MEDS: Albuterol/Ipratropium NEB.SOL (2.5/0.5 MG) 3 ML NEB.SOLN INH PRN ×2 (16:32→19:20)
[2022-07-29] MEDS: Pantoprazole VIAL 40 MG VIAL IV SCH (16:49)
[2022-07-29] MEDS: Anidulafungin 100 MG in NS 0.9% 100 ml BAG 100 ML IVPB SCH (19:33)
[2022-07-29 20:00] LABS: Hematocrit 37.3 % (38-53); Hemoglobin 12.7 g/dL (13.2-16.3)
[2022-07-29] MEDS: Enoxaparin 40 MG/0.4 ML SYR SUBCUT SCH (21:40)
[2022-07-30 05:54] LABS: ABS Basophils 0.1 10^3/uL (0.0-0.1); ABS Eosinophils 0.2 10^3/uL (0.0-0.5); ABS Lymphocytes 0.6 10^3/uL (1.0-4.8); ABS Monocytes 1.5 10^3/uL (0.0-1.1); ABS Neutrophils 11.3 10^3/uL (1.5-7.6); ABS Nucleated RBC 0.01 10^3/ul; Eosinophil % 1.1 %; Hematocrit 36.2 % (38-53); Hemoglobin 12.4 g/dL (13.2-16.3); Lymphocyte % 4.6 %; Mean Corpuscular Hemoglobin 32.7 pg (27-33); Mean Corpuscular Hgb Conc 34.3 g/dL (31-36); Mean Corpuscular Volume 95.3 fL (80-97); Mean Platelet Volume 7.1 fL (7.5-11.2); Nucleated Red Blood Cells % 0.1 /100 WBC (0.0-0.4); Platelet Count 484 10^3/uL (150-450); Red Cell Distribution Width 15.3 % (12-17); White Blood Count 13.6 10^3/uL (3.6-10.2)
[2022-07-30] MEDS: Piperacillin/Tazobac ADVAN 3.375 GM in NS 0.9% 100 ml BAG 100 ML IV SCH ×3 (05:55→21:00)
[2022-07-30 06:11] LABS: Calcium 7.5 mg/dL (8.6-10.3); Creatinine, Serum 0.5 mg/dL (0.67-1.17); Potassium 4.1 mmol/L (3.5-5.0); eGFR CKD-EPI 112.5 (>60)
[2022-07-30] MEDS: Mometasone/Formoter 200/5 MDI INH SCH ×2 (08:21→19:32)
[2022-07-30] MEDS ORDERED: Albuterol/Ipratropium NEB.SOL (2.5/0.5 MG) 3 ML NEB.SOLN INH ONE (08:57)
[2022-07-30] MEDS: levETIRAcetam LIQ 500 MG/5 ML UDC PO SCH ×2 (09:14→20:26)
[2022-07-30] MEDS: Pantoprazole VIAL 40 MG VIAL IV SCH (09:14)
[2022-07-30] MEDS: Nystatin TOP POWDER 15 GM BTL TOPICAL SCH (09:15)
[2022-07-30] MEDS: Phenytoin 100 mg ER CAP PO SCH ×2 (09:16→20:24)
[2022-07-30] MEDS ORDERED: Furosemide 40 mg/4 ml IV VIAL IV SLOW PU ONE (11:49)
[2022-07-30] MEDS: Anidulafungin 100 MG in NS 0.9% 100 ml BAG 100 ML IVPB SCH (18:47)
[2022-07-30] MEDS: Enoxaparin 40 MG/0.4 ML SYR SUBCUT SCH (20:31)
[2022-07-30] MEDS ORDERED: Albuterol 2.5mg/3 ml (0.083%) NEB.SOLN INH SCH (21:00)
[2022-07-31 06:26] LABS: Hematocrit 34.4 % (38-53); Hemoglobin 11.7 g/dL (13.2-16.3); Mean Corpuscular Hemoglobin 31.6 pg (27-33); Mean Corpuscular Hgb Conc 33.9 g/dL (31-36); Mean Corpuscular Volume 93.1 fL (80-97); Mean Platelet Volume 7.4 fL (7.5-11.2); Platelet Count 491 10^3/uL (150-450); Red Cell Distribution Width 15.3 % (12-17); White Blood Count 11.8 10^3/uL (3.6-10.2)
[2022-07-31 06:53] LABS: C Reactive Protein 261.99 mg/L (<8.01); Calcium 7.4 mg/dL (8.6-10.3); Creatinine, Serum 0.42 mg/dL (0.67-1.17); Potassium 3.5 mmol/L (3.5-5.0); eGFR CKD-EPI 118.6 (>60)
[2022-07-31 07:01] LABS: ABS Basophils 0.1 10^3/uL (0.0-0.1); ABS Eosinophils 0.2 10^3/uL (0.0-0.5); ABS Lymphocytes 0.8 10^3/uL (1.0-4.8); ABS Monocytes 1.3 10^3/uL (0.0-1.1); ABS Neutrophils 9.4 10^3/uL (1.5-7.6); Eosinophil % 1.3 %; Lymphocyte % 6.7 %
[2022-07-31] MEDS: Mometasone/Formoter 200/5 MDI INH SCH ×2 (07:42→19:55)
[2022-07-31] MEDS: Pantoprazole VIAL 40 MG VIAL IV SCH (09:07)
[2022-07-31] MEDS: levETIRAcetam LIQ 500 MG/5 ML UDC PO SCH ×2 (09:07→20:05)
[2022-07-31] MEDS: Phenytoin 100 mg ER CAP PO SCH ×2 (09:08→20:02)
[2022-07-31] MEDS: Sulfamethox/Trimethoprim DS TAB 800/160 mg PO SCH ×2 (09:09→20:04)
[2022-07-31] MEDS: Albuterol/Ipratropium NEB.SOL (2.5/0.5 MG) 3 ML NEB.SOLN INH PRN (16:41)
[2022-07-31] MEDS: Anidulafungin 100 MG in NS 0.9% 100 ml BAG 100 ML IVPB SCH (17:19)
[2022-07-31] MEDS: Enoxaparin 40 MG/0.4 ML SYR SUBCUT SCH (20:06)
[2022-08-01] MEDS: Mometasone/Formoter 200/5 MDI INH SCH ×2 (07:47→18:57)
[2022-08-01] MEDS: levETIRAcetam LIQ 500 MG/5 ML UDC PO SCH ×2 (09:39→20:19)
[2022-08-01] MEDS: Pantoprazole VIAL 40 MG VIAL IV SCH (09:39)
[2022-08-01] MEDS: Phenytoin 100 mg ER CAP PO SCH ×2 (09:40→20:18)
[2022-08-01] MEDS: Sulfamethox/Trimethoprim DS TAB 800/160 mg PO SCH ×2 (09:40→20:18)
[2022-08-01] MEDS: Anidulafungin 100 MG in NS 0.9% 100 ml BAG 100 ML IVPB SCH (19:14)
[2022-08-01] MEDS: Enoxaparin 40 MG/0.4 ML SYR SUBCUT SCH (20:18)
[2022-08-02 06:20] LABS: Albumin 2.1 g/dL (3.2-5.2); Calcium 7.4 mg/dL (8.6-10.3); Creatinine, Serum 0.39 mg/dL (0.67-1.17); Potassium 3.4 mmol/L (3.5-5.0); Total Protein 6.2 g/dL (6.4-8.9); eGFR CKD-EPI 121.3 (>60)
[2022-08-02 06:21] LABS: Albumin/Globulin Ratio 0.5 (1-3); Globulin 4.1 g/dL (2-4); Total Bilirubin 0.4 mg/dL (0.2-1.0)
[2022-08-02] MEDS ORDERED: Potassium Chlor 20 meq TAB.ER PO ONE (07:29)
[2022-08-02 07:41] LABS: Hematocrit 35.9 % (38-53); Hemoglobin 12.2 g/dL (13.2-16.3); Mean Corpuscular Hemoglobin 32.3 pg (27-33); Mean Corpuscular Hgb Conc 33.9 g/dL (31-36); Mean Corpuscular Volume 95.4 fL (80-97); Mean Platelet Volume 7.3 fL (7.5-11.2); Platelet Count 501 10^3/uL (150-450); Red Blood Count 3.76 10^6/uL (4.06-5.63); Red Cell Distribution Width 15.5 % (12-17); White Blood Count 9.7 10^3/uL (3.6-10.2)
[2022-08-02] MEDS: Mometasone/Formoter 200/5 MDI INH SCH ×2 (07:54→19:23)
[2022-08-02 08:10] LABS: ABS Basophils 0.1 10^3/uL (0.0-0.1); ABS Eosinophils 0.2 10^3/uL (0.0-0.5); ABS Lymphocytes 0.9 10^3/uL (1.0-4.8); ABS Monocytes 1.2 10^3/uL (0.0-1.1); ABS Neutrophils 7.3 10^3/uL (1.5-7.6); ABS Nucleated RBC 0.01 10^3/ul; Eosinophil % 1.8 %; Lymphocyte % 9.4 %; Nucleated Red Blood Cells % 0.1 /100 WBC (0.0-0.4)
[2022-08-02] MEDS: Pantoprazole VIAL 40 MG VIAL IV SCH (08:47)
[2022-08-02] MEDS: levETIRAcetam LIQ 500 MG/5 ML UDC PO SCH ×2 (08:48→21:57)
[2022-08-02] MEDS: Phenytoin 100 mg ER CAP PO SCH ×2 (08:50→21:57)
[2022-08-02] MEDS: Sulfamethox/Trimethoprim DS TAB 800/160 mg PO SCH ×2 (08:50→21:56)
[2022-08-02 09:22] LABS: Magnesium 1.8 mg/dL (1.9-2.7)
[2022-08-02] MEDS: Ondansetron 4 mg VIAL 2 MG/ML 2 ml VIAL IV PRN ×2 (12:46→18:54)
[2022-08-02] MEDS: Anidulafungin 100 MG in NS 0.9% 100 ml BAG 100 ML IVPB SCH (17:22)
[2022-08-02] MEDS: Enoxaparin 40 MG/0.4 ML SYR SUBCUT SCH (21:58)
[2022-08-03 06:24] LABS: ABS Basophils 0.1 10^3/uL (0.0-0.1); ABS Eosinophils 0.2 10^3/uL (0.0-0.5); ABS Lymphocytes 0.9 10^3/uL (1.0-4.8); ABS Neutrophils 6.1 10^3/uL (1.5-7.6); ABS Nucleated RBC 0.01 10^3/ul; Eosinophil % 2.5 %; Hematocrit 34.5 % (38-53); Hemoglobin 11.9 g/dL (13.2-16.3); Lymphocyte % 10.8 %; Mean Corpuscular Hemoglobin 32.8 pg (27-33); Mean Corpuscular Hgb Conc 34.6 g/dL (31-36); Mean Corpuscular Volume 94.8 fL (80-97); Mean Platelet Volume 6.8 fL (7.5-11.2); Nucleated Red Blood Cells % 0.1 /100 WBC (0.0-0.4); Platelet Count 432 10^3/uL (150-450); Red Blood Count 3.63 10^6/uL (4.06-5.63); Red Cell Distribution Width 15.2 % (12-17); White Blood Count 8.3 10^3/uL (3.6-10.2)
[2022-08-03 06:42] LABS: C Reactive Protein 170.05 mg/L (<8.01); Calcium 7.4 mg/dL (8.6-10.3); Creatinine, Serum 0.38 mg/dL (0.67-1.17); Potassium 3.9 mmol/L (3.5-5.0); eGFR CKD-EPI 122.2 (>60)
[2022-08-03] MEDS: Mometasone/Formoter 200/5 MDI INH SCH ×2 (08:17→19:51)
[2022-08-03] MEDS: Phenytoin 100 mg ER CAP PO SCH ×2 (08:55→21:19)
[2022-08-03] MEDS: Pantoprazole VIAL 40 MG VIAL IV SCH (08:55)
[2022-08-03] MEDS: Sulfamethox/Trimethoprim DS TAB 800/160 mg PO SCH ×2 (08:55→21:20)
[2022-08-03] MEDS: levETIRAcetam LIQ 500 MG/5 ML UDC PO SCH ×2 (08:56→21:21)
[2022-08-03] MEDS: Anidulafungin 100 MG in NS 0.9% 100 ml BAG 100 ML IVPB SCH (18:06)
[2022-08-03] MEDS: Enoxaparin 40 MG/0.4 ML SYR SUBCUT SCH (21:21)
[2022-08-04] MEDS: Mometasone/Formoter 200/5 MDI INH SCH ×2 (07:37→19:48)
[2022-08-04] MEDS: levETIRAcetam LIQ 500 MG/5 ML UDC PO SCH ×2 (09:40→22:16)
[2022-08-04] MEDS: Phenytoin 100 mg ER CAP PO SCH ×2 (09:41→22:15)
[2022-08-04] MEDS: Pantoprazole VIAL 40 MG VIAL IV SCH (09:41)
[2022-08-04] MEDS: Sulfamethox/Trimethoprim DS TAB 800/160 mg PO SCH ×2 (09:42→22:15)
[2022-08-04] MEDS: Anidulafungin 100 MG in NS 0.9% 100 ml BAG 100 ML IVPB SCH (18:34)
[2022-08-04] MEDS: Enoxaparin 40 MG/0.4 ML SYR SUBCUT SCH (22:17)
[2022-08-05] MEDS: Mometasone/Formoter 200/5 MDI INH SCH ×2 (07:37→19:10)
[2022-08-05] MEDS: Phenytoin 100 mg ER CAP PO SCH ×2 (09:41→21:18)
[2022-08-05] MEDS: levETIRAcetam LIQ 500 MG/5 ML UDC PO SCH ×2 (09:41→21:17)
[2022-08-05] MEDS: Sulfamethox/Trimethoprim DS TAB 800/160 mg PO SCH ×2 (09:41→21:19)
[2022-08-05] MEDS: Pantoprazole VIAL 40 MG VIAL IV SCH (09:41)
[2022-08-05] MEDS: Anidulafungin 100 MG in NS 0.9% 100 ml BAG 100 ML IVPB SCH (18:14)
[2022-08-05] MEDS: Enoxaparin 40 MG/0.4 ML SYR SUBCUT SCH (21:19)
[2022-08-06] MEDS: Mometasone/Formoter 200/5 MDI INH SCH (07:40)
[2022-08-06] MEDS: Sulfamethox/Trimethoprim DS TAB 800/160 mg PO SCH (08:58)
[2022-08-06] MEDS: levETIRAcetam LIQ 500 MG/5 ML UDC PO SCH (08:58)
[2022-08-06] MEDS: Phenytoin 100 mg ER CAP PO SCH (08:58)
[2022-08-06] MEDS: Pantoprazole VIAL 40 MG VIAL IV SCH (08:58)
[2022-08-06 13:27] VITALS: BP 109/71
[2022-08-06] MEDS ORDERED: Sulfamethox/Trimethoprim DS TAB 800/160 mg PO ONE (17:00)
== END 2022-08-06 18:30 | disposition home or self-care (01) | DRG 329 ==
LOC: ED 11:04 → EDHOLD 11:04 → SUATTDRO 15:14 → EDHOLD 18:20 → MED 18:29 → SUATTDRO 07-17 10:46 → SSU 07-17 21:03 → MED 07-31 13:36
PROVIDERS: ADMIT Internal Medicine; ATTEND Hospitalist

== ENCOUNTER 2023-10-13 13:11 | Observation (INO) ==
[2023-10-13 15:53] LABS: ABS Basophils 0.1 10^3/uL (0.0-0.1); ABS Eosinophils 0.3 10^3/uL (0.0-0.5); ABS Lymphocytes 1.4 10^3/uL (1.0-4.8); ABS Monocytes 0.7 10^3/uL (0.0-1.1); ABS Neutrophils 3.9 10^3/uL (1.5-7.6); Eosinophil % 5.3 %; Hematocrit 46.8 % (38-53); Hemoglobin 15.9 g/dL (13.2-16.3); Lymphocyte % 22.3 %; Mean Corpuscular Hemoglobin 32.8 pg (27-33); Mean Corpuscular Hgb Conc 33.9 g/dL (31-36); Mean Corpuscular Volume 96.6 fL (80-97); Mean Platelet Volume 8.4 fL (7.5-11.2); Nucleated Red Blood Cells % 0.1 %/100WBC (0.0-0.8); Platelet Count 169 10^3/uL (150-450); Red Blood Count 4.84 10^6/uL (4.06-5.63); Red Cell Distribution Width 14.5 % (12-17); White Blood Count 6.5 10^3/uL (3.6-10.2)
[2023-10-13 16:07] LABS: Urine Appearance Clear; Urine Bilirubin Negative (Negative); Urine Blood Negative (Negative); Urine Color Light-Yellow; Urine Glucose Negative (Negative); Urine Ketones Negative (Negative); Urine Nitrite Negative (Negative); Urine Protein Negative (Negative); Urine Specific Gravity 1.008 (1.002-1.030); Urine Urobilinogen Negative (Negative); Urine pH 7.5 (5.0-8.0)
[2023-10-13 16:13] LABS: INR 1.04 (0.85-1.14)
[2023-10-13 16:20] LABS: High Sens Troponin Baseline < 3 pg/mL (<20)
[2023-10-13 16:32] LABS: ALT 23 U/L (7-52); AST 18 U/L (13-39); Albumin 4.4 g/dL (3.2-5.2); Albumin/Globulin Ratio 1.6 (1-3); Alcohol, S < 13 mg/dL (<13); Alkaline Phosphatase 83 U/L (35-149); Anion Gap 5 mmol/L (2-16); Blood Urea Nitrogen 13 mg/dL (6-24); CO2 Carbon Dioxide 33 mmol/L (22-32); Calcium 9.5 mg/dL (8.6-10.3); Chloride 100 mmol/L (101-111); Creatine Kinase 57 U/L (10-223); Creatinine, Serum 0.82 mg/dL (0.67-1.17); Globulin 2.8 g/dL (2-4); Glucose 97 mg/dL (70-100); Magnesium 2.1 mg/dL (1.9-2.7); Potassium 3.9 mmol/L (3.5-5.0); Sodium 138 mmol/L (135-145); Total Bilirubin 0.4 mg/dL (0.2-1.0); Total Protein 7.2 g/dL (6.4-8.9); eGFR CKD-EPI 96.3 (>60)
[2023-10-13 17:25] LABS: High Sensitivity Troponin 1 Hr < 3 pg/mL (<20)
[2023-10-13 19:02] LABS: Phenytoin 39.9 mcg/mL (10-20)
[2023-10-14 02:08] LABS: TSH Ultra Thyroid Stim Horm 3.11 mcIU/mL (0.34-5.60)
[2023-10-14] MEDS: Enoxaparin 40 MG/0.4 ML SYR SUBCUT SCH (02:50)
[2023-10-14 09:21] LABS: Hematocrit 47.3 % (38-53); Mean Corpuscular Hemoglobin 32.4 pg (27-33); Mean Corpuscular Hgb Conc 33.8 g/dL (31-36); Mean Platelet Volume 8.7 fL (7.5-11.2); Platelet Count 163 10^3/uL (150-450); Red Blood Count 4.92 10^6/uL (4.06-5.63); Red Cell Distribution Width 14.4 % (12-17); White Blood Count 6.5 10^3/uL (3.6-10.2)
[2023-10-14 09:50] LABS: Calcium 8.7 mg/dL (8.6-10.3); Creatinine, Serum 0.74 mg/dL (0.67-1.17); Magnesium 1.9 mg/dL (1.9-2.7); Potassium 3.7 mmol/L (3.5-5.0); eGFR CKD-EPI 99.3 (>60)
[2023-10-15 06:16] LABS: ABS Basophils 0.1 10^3/uL (0.0-0.1); ABS Eosinophils 0.3 10^3/uL (0.0-0.5); ABS Lymphocytes 1.4 10^3/uL (1.0-4.8); ABS Monocytes 0.7 10^3/uL (0.0-1.1); Eosinophil % 4.7 %; Hematocrit 43.8 % (38-53); Lymphocyte % 21.9 %; Mean Corpuscular Hemoglobin 32.9 pg (27-33); Mean Corpuscular Hgb Conc 34.2 g/dL (31-36); Mean Platelet Volume 8.2 fL (7.5-11.2); Nucleated Red Blood Cells % 0.1 %/100WBC (0.0-0.8); Platelet Count 146 10^3/uL (150-450); Red Blood Count 4.56 10^6/uL (4.06-5.63); Red Cell Distribution Width 14.3 % (12-17); White Blood Count 6.4 10^3/uL (3.6-10.2)
[2023-10-15 06:50] LABS: Creatinine, Serum 0.77 mg/dL (0.67-1.17); Magnesium 1.9 mg/dL (1.9-2.7); Potassium 3.6 mmol/L (3.5-5.0); eGFR CKD-EPI 98.1 (>60)
[2023-10-16 14:02] VITALS: BP 121/65
== END 2023-10-16 15:30 | disposition home or self-care (01) ==
LOC: ED 13:11 → INTOOBSV 20:23 → EDHOLD 20:23 → MEDTELE 10-14 07:37
PROVIDERS: ADMIT Internal Medicine; ATTEND Internal Medicine